=== PATIENT | female | born 1990 | race Two or more races ===

== ENCOUNTER 2017-09-20 16:04 | Emergency (ER) | payer SELFPAY ==
[~2017-09-20] VITALS: Ht 162.6 cm; Wt 99.8 kg
[2017-09-20 17:39] VITALS: BP 140/73
== END 2017-09-20 18:51 | disposition home or self-care (01) ==
LOC: ER 16:04
DX: R10.9 Unspecified abdominal pain (principal); Z90.49 Acquired absence of other specified parts of digestive tract
CPT/HCPCS: 36415; 84702

== ENCOUNTER 2020-03-15 11:16 | Emergency (ER) | payer MEDICAID, OTHER ==
[~2020-03-15] VITALS: Ht 162.6 cm; Wt 104.3 kg
[2020-03-15 11:21] VITALS: BP 126/72
[2020-03-15 13:18] LABS: Urine Bacteria MOD /hpf (None Seen); Urine Blood Negative /uL (Negative); Urine Mucus FEW (None Seen); Urine WBC 30 /hpf (0 - 5)
== END 2020-03-15 14:01 | disposition home or self-care (01) ==
LOC: ER 11:16
DX: N39.0 Urinary tract infection, site not specified (principal); Z32.02 Encounter for pregnancy test, result negative; Z90.49 Acquired absence of other specified parts of digestive tract
CPT/HCPCS: 36415; 81001; 84702; 85025